=== PATIENT | male | born 1995 ===

== ENCOUNTER 2016-09-17 16:01 | Emergency (ER) | payer OTHER ==
[~2016-09-17] VITALS: Ht 175.3 cm; Wt 110.0 kg
[2016-09-17 16:13] VITALS: TEMP 36.7; Ht 175.3 cm; Wt 110.0 kg
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
[2016-09-17] MEDS ORDERED: LIDOCAINE/EPINEPHRINE 1% 20 ML VIAL INFIL ONE (16:45)
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
[2016-09-17] MEDS ORDERED: CEPH500C PO (18:17)
[2016-09-17 18:33] VITALS: BP 145/80; PULSE 90; O2SAT 99
== END 2016-09-17 18:34 | disposition home or self-care (01) ==
LOC: C.EDD 16:03
DX: S01.91XA Laceration without foreign body of unspecified part of head, initial encounter (principal); S61.412A Laceration without foreign body of left hand, initial encounter; S60.512A Abrasion of left hand, initial encounter; S80.212A Abrasion, left knee, initial encounter; S09.90XA Unspecified injury of head, initial encounter; S00.83XA Contusion of other part of head, initial encounter; V53.6XXA Passenger in pick-up truck or van injured in collision with car, pick-up truck or van in traffic accident, initial encounter; Y92.488 Other paved roadways as the place of occurrence of the external cause

== ENCOUNTER 2016-09-22 11:21 | Emergency (ER) | payer OTHER ==
[~2016-09-22] VITALS: Ht 182.9 cm; Wt 115.0 kg
[~2016-09-22 11:21] MED LIST: CEPH500C PO
[2016-09-22 11:25] VITALS: TEMP 37; Ht 182.9 cm; Wt 115.0 kg
[2016-09-22 12:06] VITALS: BP 122/72; PULSE 75; O2SAT 98
--- NOTE | 2016-09-22 12:08 | EMERGENCY ROOM VISIT NOTE ---
ED Visit Note First contact with patient: 11:43 CHIEF COMPLAINT: Suture removal HISTORY OF PRESENT ILLNESS: This 20-year-old male patient returns to the ED today for removal of sutures that were placed 5 days ago. There has been no swelling, redness, or drainage from the wound. The patient feels like the laceration is healing well. REVIEW OF SYSTEMS: A 6 system review of systems was completed with positives and pertinent negatives listed in the HPI. PMH: Unchanged from previous visit. ALLERGIES: No known allergies PHYSICAL EXAM: Vital Signs: Reviewed Nurse's notes, vital signs stable. GENERAL : This is a 20-year-old male, in no acute distress. SKIN: There is a sutured wound on the left brow with no signs of infection. There is no erythema, swelling, or tenderness. EMERGENCY DEPARTMENT COURSE: The patient had a large flap-like laceration to the left brow. I repaired the laceration approximately 5 days ago. I anticipated the entire tissue flap may and I have recommended the patient follow-up with plastic surgery. On reevaluation, it appears as though the very edge of the tissue flap is not viable. I removed half of the sutures and left [address] and felt 2 more days would be beneficial. I offered to contact plastic surgery to attempt to have the patient seen. He declines. He does not want to see plastic surgery. I advised him that he will likely have significant scarring and may have a defect in his eyebrow. He knowledge his understanding and states he would prefer just to come back here in 2 days and have the sutures removed. DIAGNOSIS: Healing laceration and suture removal DISCHARGE INSTRUCTIONS AND TREATMENT: Return in 2 days to have the remaining sutures removed. I do recommend that he follow-up with plastic surgery. Part of the tissue flap is not viable. This may result in scarring and possibly a defect in the eyebrow. Current/Historical Medications Scheduled Cephalexin Monohydrate (Keflex), 500 MG PO TID Allergies Coded Allergies: No Known Allergies (Unverified , 09/17/16) Vital Signs Date Time Temp Pulse Resp B/P Pulse Ox O2 Delivery O2 Flow Rate FiO2 09/22/16 12:06 75 16 122/72 98 Room Air 09/22/16 11:25 37.0 87 16 132/83 100 Room Air Departure Information Impression Primary Impression: Encounter for removal of sutures Dispostion Home / Self-Care Condition GOOD Referrals [facility] (PCP) Lizy Barroso MD Patient Instructions My [facility] Additional Instructions Return in 2 days to have the remaining sutures removed. I do recommend follow-up with plastic surgery. Contact the office for a follow-up appointment if you decide you would like to see plastic surgery. Part of the tissue flap is not viable. This may result in scarring and possibly a defect in the eyebrow.
== END 2016-09-22 12:12 | disposition home or self-care (01) ==
LOC: C.EDB 11:22 → C.EDD 12:12
DX: Z45.02 Encounter for adjustment and management of automatic implantable cardiac defibrillator (principal)

== ENCOUNTER 2016-09-24 13:19 | Emergency (ER) | payer OTHER ==
[~2016-09-24] VITALS: Ht 175.3 cm; Wt 113.6 kg
[2016-09-24 13:22] VITALS: BP 118/74; PULSE 73; TEMP 36.5; O2SAT 98; Ht 175.3 cm; Wt 113.6 kg
--- NOTE | 2016-09-24 14:01 | EMERGENCY ROOM VISIT NOTE ---
ED Visit Note First contact with patient: 13:55 CHIEF COMPLAINT: Removal of sutures HISTORY OF PRESENT ILLNESS: This 20-year-old male patient presents to the emergency department for removal of sutures from their forehead. The sutures were placed 7 days ago. The patient was seen here 2 days ago and had some of the sutures removed. He was informed multiple times that part of the skin flap is nonviable and he should follow-up with plastic surgery for better cosmetic outcomes. He has not followed up with plastic surgery and does not desire to do so. There have been no signs of infection. The patient denies any pain. REVIEW OF SYSTEMS: A review of systems was performed with positives and pertinent negatives listed in the history of present illness. All other systems were reviewed and are negative. ALLERGIES: No known drug allergies MEDICATIONS: Unchanged from previous visit. PMH: Unchanged from previous visit. 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 PHYSICAL EXAM: VITALS: Vitals are noted on the nurse's note and reviewed by myself. Vital signs stable. GENERAL: This is a 20-year-old male, in no acute distress, nondiaphoretic, well- developed well-nourished. SKIN: There is a sutured wound on the left eyebrow. A portion of the skin flap is nonviable. There are no signs of infection. EMERGENCY DEPARTMENT COURSE: The patient was evaluated as above. Sutures were removed from the left eyebrow with no dehiscence. There is no evidence of infection. Scar reduction measures were discussed the the patient. The patient was again encouraged to follow up with plastic surgery for better cosmetic outcomes. He verbalized understanding and were discharged home in good condition. DIAGNOSIS: Encounter for suture removal DISCHARGE INSTRUCTIONS & TREATMENT: Wash the remaining crusts off the wound. Keep the wound covered with SPF for the next 6 months to reduce scarring. Once the wound has fully healed, you may apply Vitamin E oil, cocoa butter, or any over the counter scar reducing formulations daily. Current/Historical Medications No Active Prescriptions or Reported Meds Allergies Coded Allergies: No Known Allergies (Unverified , 09/24/16) Vital Signs Date Time Temp Pulse Resp B/P Pulse Ox O2 Delivery O2 Flow Rate FiO2 09/24/16 13:22 36.5 73 18 118/74 98 Room Air Departure Information Impression Primary Impression: Encounter for removal of sutures Dispostion Home / Self-Care Condition GOOD Prescriptions No Active Prescriptions or Reported Meds Referrals [facility] (PCP) Patient Instructions My [facility] Additional Instructions Wash the remaining crusts off the wound. Keep the wound covered with SPF for the next 6 months to reduce scarring. Once the wound has fully healed, you may apply Vitamin E oil, cocoa butter, or any over the counter scar reducing formulations daily Follow-up with plastic surgery if desired for cosmetic repair.
== END 2016-09-24 14:10 | disposition home or self-care (01) ==
LOC: C.EDB 13:22 → C.EDD 14:10
DX: S01.81XD Laceration without foreign body of other part of head, subsequent encounter (principal); X58.XXXD Exposure to other specified factors, subsequent encounter